=== PATIENT | male | born 1995 | race Caucasian/White ===

== ENCOUNTER 2022-07-06 19:08 | Emergency (ER) | payer BC, SELFPAY ==
--- NOTE | ~2022-07-06 | XR_ITS ---
EXAMINATION: XR finger 2nd RT min 2V INDICATION: Right second finger pain TECHNIQUE: Four views of the right second finger are obtained. COMPARISON: None available FINDINGS: No fracture, dislocation, or subluxation. The bones, soft tissues, and joint spaces are nor mal. No productive changes of bony healing are identified. IMPRESSION: 1. No acute osseous abnormality. Reviewed, dictated and finalized at location F. ERING SERVICE TELEPHONE OPERATOR
[2022-07-06 19:10] VITALS: BP 125/66; PULSE 76; RESP 16; TEMP 36.8; O2SAT 100
--- NOTE | 2022-07-06 19:19 | ED.UPPEXIN ---
HPI - Extremity Injury (Upper) General Chief Complaint: Extremity Injury, Upper Stated Complaint: Pointer Finger Rt Hand Injury Time Seen by Provider: 07/06/22 19:32 Source: patient Mode of arrival: ambulatory Limitations: no limitations History of Present Illness HPI narrative: 26-year-old male presents for complaint of injury to right index finger sustained 2 weeks ago. Injury occurred by smashing finger between two pieces of metal. Endorses the nail has been bruised and oozing blood since. Pain is 4/10, described as throbbing. States pain is improving since onset. He endorses swelling to the tip of finger, it feels numb at times. Endorses full ROM to the finger. Related Data Home Medications Medication Instructions Recorded Confirmed No Home Medications 07/06/22 07/06/22 Allergies Allergy/AdvReac Type Severity Reaction Status Date / Time No Known Allergies Allergy Verified 07/06/22 19:13 Review of Systems Review of Systems: CONSTITUTIONAL: Denies body aches, fever, chills CARDIOVASCULAR: Denies chest pain, palpitations, or edema. RESPIRATORY: Denies cough or dyspnea. GASTROINTESTINAL: Denies abdominal pain, nausea, vomiting, or diarrhea. SKIN: Denies rash, itching, or wounds. MUSCULOSKELETAL: per HPI NEUROLOGIC: Denies headache, weakness. All systems reviewed & are unremarkable except as noted in HPI and below PMFSH Comments At time of signature, I have reviewed and agree with nursing past medical, surgical, social and family history unless otherwise noted. Please see nursing chart for further information. There is no relevant family history pertinent to the presenting complaint Exam Narrative: GENERAL: Well-appearing CHEST: Speaks in full sentences. No respiratory distress. HEART: Regular rate and rhythm. Normal and equal peripheral pulses. EXTREMITIES: Right hand 2nd digit with subungual hematoma and mild swelling to distal phalanx, no active drainage; Finger has normal strength; slightly decreased sensation to distal aspect of finger with 2 point discrimination, normal range of motion to finger. No point tenderness. No open wounds or obvious deformity; pulse palpable and equal bilaterally, skin warm, dry, pink. Capillary refill less than 3 seconds. SKIN: Warm, dry, no rash. NEURO: Alert and oriented x3. PSYCH: Normal mood and affect Course Course Emergency Course: Patient is aware of diagnosis, understands and agrees to treatment plan. Anticipatory guidance given. Patient agrees to follow-up as directed and is aware of reasons to seek care at the emergency department. Portions of this record may have been created with voice recognition software Level of Care: Express Care Visit Vital Signs Vital signs: Vital Signs Temperature 98.3 F 07/06/22 19:10 Pulse Rate 76 07/06/22 19:10 Respiratory Rate 16 07/06/22 19:10 Blood Pressure 125/66 07/06/22 19:10 Pulse Oximetry 100 07/06/22 19:10 Oxygen Delivery Room Air 07/06/22 19:10 Temperature 98.3 F 07/06/22 19:10 Pulse Rate 76 07/06/22 19:10 Respiratory Rate 16 07/06/22 19:10 Blood Pressure 125/66 07/06/22 19:10 Pulse Oximetry 100 07/06/22 19:10 Oxygen Delivery Room Air 07/06/22 19:10 Reviewed MDM - Extremity Injury (Upper) MDM Narrative Medical decision making narrative: results of x-ray reviewed with patient. subungual hematoma present for 2 weeks. Patient does not report severe pain. Advised follow-up with PCP/ hand specialist if needed. Advised supportive measures and signs/symptoms to go to the ER. Pt is appropriate for outpt treatment and f/u. Differential Diagnosis Differential diagnosis: Likely dislocation of finger and other (finger fracture, subungual hematoma) Imaging Data Radiologist's impression: Patient: Brina Vann : 1995 MR#: [id number] Age/Sex: 26 / M Acct:[id number] Loc: [facility]? ? ADM Date: 07/06/22Attending Dr: Ordering Physician: Montse Patricia
== END 2022-07-06 19:52 | disposition home or self-care (01) ==
PROVIDERS: Emergency Provider Nurse Practitioner Family
DX: S60.021A Contusion of right index finger without damage to nail, initial encounter (principal); W23.0XXA Caught, crushed, jammed, or pinched between moving objects, initial encounter
CPT/HCPCS: 73140; 99213; G0463

== ENCOUNTER 2022-07-19 13:02 | Emergency (ER) | payer BC, SELFPAY ==
[2022-07-19 13:21] VITALS: BP 130/63; PULSE 81; RESP 18; TEMP 36.9; O2SAT 98
--- NOTE | 2022-07-19 13:52 | ED.URI ---
HPI - URI/Sore Throat General Chief Complaint: Upper Respiratory Infection Stated Complaint: Cough,Headache,Sore Throat Time Seen by Provider: 07/19/22 13:41 Source: patient Mode of arrival: ambulatory Limitations: no limitations History of Present Illness HPI Narrative: Patient presents today complaining of a 3 day history of cough and sore throat. Cough is productive in the mornings, but lessened throughout the day. Denies fever shortness of breath. He currently rates his sore throat 02/25 has been taking NyQuil, [place] without much relief. Reports girlfriend was sick with a, head cold last week. Related Data Allergies Allergy/AdvReac Type Severity Reaction Status Date / Time No Known Allergies Allergy Verified 07/19/22 13:50 Review of Systems Review of Systems: CONSTITUTIONAL: Denies body aches, fever, chills, or sweats. EYES: Denies visual changes, redness, or discharge. ENT: Denies rhinorrhea, congestion, or otalgia.+ Sore throat CARDIOVASCULAR: Denies chest pain, palpitations, or edema. RESPIRATORY: Denies dyspnea.+ cough GASTROINTESTINAL: Denies abdominal pain, nausea, vomiting, or diarrhea. GENITOURINARY: Denies dysuria or hematuria. SKIN: Denies rash, itching, or wounds. MUSCULOSKELETAL: Denies back pain, joint pain, or myalgia. NEUROLOGIC: Denies headache, numbness, tingling, or weakness. PSYCH: Denies depression or anxiety. PMFSH Comments At time of signature, I have reviewed and agree with nursing past medical, surgical, social and family history unless otherwise noted. Please see nursing chart for further information. There is no relevant family history pertinent to the presenting complaint Exam Narrative: GENERAL: Well-appearing, well-nourished, and in no acute distress. HEAD: Normocephalic, atraumatic. EYES: EOMI. No redness or drainage. Conjunctivae normal. ENT: Mucous membranes pink and moist. Nares clear. No rhinorrhea. TMs normal bilaterally. Throat mildly erythematous without edema or exudate. Uvula midline. NECK: Normal AROM. Supple. No lymphadenopathy. CHEST: No respiratory distress. Clear to auscultation. HEART: Regular rate and rhythm. No murmur appreciated. Normal peripheral pulses. EXTREMITIES: Normal range of motion. No edema. SKIN: Warm, dry, no rash. Capillary refill normal. Normal skin turgor. NEURO: No focal deficits. Alert and oriented x3. Gait steady. PSYCH: Normal affect. No signs of depression or anxiety. Course Course Level of Care: [facility] Visit Vital Signs Vital signs: Vital Signs Temperature 98.5 F 07/19/22 13:21 Pulse Rate 81 07/19/22 13:21 Respiratory Rate 18 07/19/22 13:21 Blood Pressure 130/63 07/19/22 13:21 Pulse Oximetry 98 07/19/22 13:21 Oxygen Delivery Room Air 07/19/22 13:21 Temperature 98.5 F 07/19/22 13:21 Pulse Rate 81 07/19/22 13:21 Respiratory Rate 18 07/19/22 13:21 Blood Pressure 130/63 07/19/22 13:21 Pulse Oximetry 98 07/19/22 13:21 Oxygen Delivery Room Air 07/19/22 13:21 Reviewed. Pt has been instructed to follow up with his PCP regarding his elevated blood pressure today. MDM - URI/Sore Throat Differential Diagnosis Differential diagnosis: Likely upper respiratory infection, viral infection, bronchitis, pharyngitis and other ( strep throat) Lab Data Attestation: I reviewed the patient's lab results. Labs: Strep Screen Presumptive Negative *(Reference Range: Negative)* Critical Care Time Critical Care Time Critical Care Time: No Discharge Plan Discharge Clinical Impression: Upper respiratory infection Qualifiers: URI type: unspecified URI Qualified Code(s): J06.9 - Acute upper respiratory infection, unspecified Patient Disposition: Home, Self-Care Condition: Stable Instructions: Upper Respiratory Infection (DC) Additional Instructions: Your rapid strep swab was negative today at [facility]
== END 2022-07-19 14:08 | disposition home or self-care (01) ==
PROVIDERS: Emergency Provider Nurse Practitioner
DX: J06.9 Acute upper respiratory infection, unspecified (principal)
CPT/HCPCS: 87081; 87880; 99213; G0463

== ENCOUNTER 2023-01-18 12:00 | Emergency (ER) | payer BC, SELFPAY ==
[2023-01-18 12:11] VITALS: BP 128/64; PULSE 76; RESP 16; TEMP 36.9; O2SAT 99
--- NOTE | 2023-01-18 12:15 | ED.EYEPROB ---
HPI - Eye Problem General Chief complaint: Eye Problems Stated complaint: Lt Eye Irritation Time Seen by Provider: 01/18/23 12:04 Source: patient Mode of arrival: ambulatory Limitations: no limitations History of Present Illness HPI Narrative: Patient is a 27-year-old male who presents with left eye irritation after getting paint dust in eye today. Patient states he went home and flushed eye distal foot neck something was stuck on the upper eyelid. Reports constant burning of eye when open. Denies any vision changes, discharge from eye. Related Data Home Medications Medication Instructions Recorded Confirmed omeprazole 20 mg capsule,delayed 20 mg PO DAILY 01/18/23 01/18/23 release Allergies Allergy/AdvReac Type Severity Reaction Status Date / Time No Known Allergies Allergy Verified 01/18/23 12:09 Review of Systems Review of Systems: All systems reviewed & are unremarkable except as noted in HPI and below Constitutional: Constitutional: Denies body ache(s), Denies fever(s), Denies headache(s), Denies malaise and Denies weakness Eyes: Eyes: Denies blurry vision, Denies eye discharge, Reports irritation, Denies itchy eyes, Denies loss of vision and Reports eye pain (Burning) ENT: Denies otalgia, Denies headache(s), Denies nasal discharge, Denies sinus pain and Denies sore throat Cardiovascular: Cardiovascular: Denies chest pain, Denies irregular heart rhythm and Denies dyspnea Respiratory: Respiratory: Denies dyspnea Gastrointestinal: Gastrointestinal: Denies abdominal pain, Denies diarrhea, Denies nausea and Denies vomiting Musculoskeletal: Musculoskeletal: Denies back pain, Denies myalgias and Denies arthralgias Integumentary/Breasts: Skin/Breast: Denies pruritus and Denies rash Neurologic: Denies headache(s), Denies loss of vision and Denies weakness Psychiatric: Psychiatric: Reports no additional psychiatric complaints Allergic/Immunologic: Allergic/Immunologic: Reports itchy eyes PMFSH Comments At time of signature, agree with nursing past medical, surgical, social and family history. There is no relevant family history pertinent to the presenting complaint. Exam Const: General: cooperative, healthy appearing, comfortable, no acute distress and well nourished Nutritional Appearance: well nourished Orientation/consciousness: patient oriented x3 Limitations: no limitations HENMT: Head: normal to inspection, normocephalic and atraumatic Ears: external ears normal Face/Nose/Sinus: Normal external nose present, normal facial exam and face symmetric Face and sinus: normal facial exam and face symmetric Mouth: Yes lip normal Eyes: General: appearance normal, both eyes and all related structures Visual Chavira: normal visual chavira by confrontation Alignment and Position: alignment normal and position normal Periorbital: periorbital findings normal Eyelids: eyelid abnormality left upper eyelid foreign body Conjunctivae: conjunctivae normal Sclera: scleral abnormality left scleral injection diffuse Pupils: Equal, round and reactive pupils present EOM: EOMs intact bilaterally Direct Ophthalmoscopy: no photophobia Other: No hyphema, no foreign body under the lids. Neck: Neck: normal visual inspection, full ROM, no lymphadenopathy and no meningeal signs Chest: Chest palpation & inspection: normal inspection of the chest Resp: Effort & Inspection: normal respiratory effort and able to speak in complete sentences Auscultation: clear to auscultation bilaterally Cardio: Rate: regular rate Rhythm: regular rhythm Heart sounds: S1 normal heart sound present and S2 normal heart sound present GI: Inspection: normal to inspection Skin: General skin exam: normal color and no rashes or lesions noted Neuro: General: patient oriented x3, moves all extremities and no meningeal signs Cranial nerves: Yes Equal, round and reactive pupils present Speech: normal speech Gait exam (Neuro): Normal gait
== END 2023-01-18 12:35 | disposition home or self-care (01) ==
PROVIDERS: Emergency Provider Nurse Practitioner Family
DX: T15.12XA Foreign body in conjunctival sac, left eye, initial encounter (principal); X58.XXXA Exposure to other specified factors, initial encounter; K21.9 Gastro-esophageal reflux disease without esophagitis
CPT/HCPCS: 99213; A9270; G0463

== ENCOUNTER 2025-03-14 11:01 | Emergency (ER) | payer BC, SELFPAY ==
--- OUTSIDE RECORDS SUMMARY | 2025-03-14 11:03 | XMS_ITS | Clinical Summary ---
Author Organization [facility] Address [address] [place] [address] Care Team Providers Care Nurse Extern Name Role Phone Unavailable Primary Care Provider Unavailabl e Source Comments [facility] [employer],non-owned Affiliates and Associated Physician Practices is amultiple site organization consisting of ambulatory clinics and hospital sitesin [place], [place], [place] and [place]. This disclosure is being madepursuant to the Care Everywhere program and may not contain all information available regarding this patient. Last updated 18.[facility] [employer] Allergies No known active allergies Medications * Be aware that medications may not be up to date on this document. Alwaysverify current medications with the patient. montelukast (SINGULAIR) 10 MG tablet Take 1 Tab by mouth every evening. 30 Tab 5 3 Active albuterol HFA (PROVENTIL;VENT BRITTNY;PROAIR) 108 (90 BASE) MCG/ACT inhaler Inhale 2 Puffs by mouth every 4 hours as needed for Wheezing or Cough. OK TO SUBSTITUTE ANY BRAND. 2 Inhaler 0 4 Active AEROCHAMBER PLUS (AEROCHAMBER) Use as directed. 1 each 3 4 Active budesonide-form oterol (SYMBICORT) 160-4.5 MCG/ACT inhaler Inhale 2 Puffs by mouth 2 times daily. 1 Inhaler 4 4 Active amoxicillin-cla vulanate (AUGMENTIN) 875-125 MG tablet Take 1 Tab by mouth 2 times daily with morning and evening meal. 20 Tab 0 4 Active Active Problems Problem Noted Date Diagnosed Date Asthma 07/08/2009 ADHD (attention deficit hyperactivity disorder) 07/08/2009 Immunizations Immunization Administration Dates Next Due INFLUENZA VACCINE, TRIV. (AF LURIA, FLUZONE TRIVALENT; 6MO+) (IIV3) 06/03/2012 DPT 04/09/2002, 7,03/18/1997,1996,1996 HEP A PEDS 2 DOSE 07/13/2008,05/02/2007 HEP B VACCINE, PED/ADOL 03/18/1997,1996, HIB BOOSTER 07/28/1997, 7,02/02/1997,1996 Human Papilloma Virus Nino valent Vaccine 06/03/2012 INFLUENZA A [id number] VACCINE 07/07/2009 INFLUENZA VACCINE 07/13/2008, 5,2003,2000 MENINGOCOCAL MENINGITIS 07/13/2008 MMR 05/25/2002,07/28/1997 POLIO OPV 04/09/2002, 7,02/02/1997,1996 PPD 04/09/2002,09/02/2001 TDAP (7yrs+) 05/02/2007 VARICELLA 05/02/2007,04/09/2002 Family History Medical History Relation Name Comments CAD (Coronary Artery Disease) Maternal Grandmother Relation Name Status Comments Maternal Grandmother Social History Tobacco Use Types Packs/Day Years Used Date Smoking Tobacco: Never Assessed Sex and Gender Information Value Date Recorded Sex Assigned at Not on file Legal Sex Male 5:41 AM [employer] Gender Identity Not on file Sexual Orientation Not on file Last Filed Vital Signs Vital Sign Reading Time Taken Comments Blood Pressure 116/70 10/09/2013 9:28 AM [employer] Pulse 64 10/09/2013 9:28 AM [employer] Temperature 36.6 C (97.9 F) 09/08/2014 10:39 AM [employer] Respiratory Rate 20 07/08/2009 3:28 PM [employer] Oxygen Saturation 98% 10/04/2011 1:41 PM [employer] Inhaled Oxygen Concentration - - Weight 61.9 kg (136 lb 6.4 oz) 09/08/2014 10:39 AM [employer] Height 177.8 cm (5' 10) 09/08/2014 10:39 AM [employer] Body Mass Index 19.57 09/08/2014 10:39 AM [employer] Plan of Treatment Health Maintenance Due Date Last Done Comments HIV SCREENING 2011 HPV VACCINE (2 - Male 3-dose series) 07/01/2012 06/03/2012 HEPATITIS C SCREENING 07/23/2014 DTAP/TDAP/TD VACCINES (7 - Td or Tdap) 05/02/2017 05/02/2007, 04/09/2002, 07/28/1997, Additional history exists COVID-19 VACCINE ( season) 2024 DEPRESSION SCREENING 08/19/2024 INFLUENZA VACCINE (#1) 2025 2, 07/07/2009, 07/13/2008, Additional history exists ZOSTER VACCINE (1 of 2) 2046 HEPATITIS B VACCINE Completed 03/18/1997, 1996, 1996 HIB VACCINE Completed 07/28/1997, 02/18, 02/02/1997, Additional history exists MENINGOCOCCAL GROUPS A/C/Y/W VACCINE Aged Out 07/13/2008 No longer eligible based on patient's age to complete this topic MENINGOCOCCAL (Group B) VACCINE SHARED DECISION-MAKING Aged Out No longer eligible based on patient's age to complete this topic PNEUMOCOCCAL VACCINE Aged Out No long er eligible based on patient's age to complete this topic Insurance HEALTH PLAN
--- OUTSIDE RECORDS SUMMARY | 2025-03-14 11:03 | XMS_ITS | Encounter Summary ---
Author Organization [facility] Address [facility] [place] [address] Care Team Providers Care Apartment Maintenance Supervisor Name Role Phone Melissa Velasco APRN Primary Care Provider [phone] Encounter Details Date Type Department Care Team (Late st Contact Info) Description 12/19/2022 Slyce Message Enc [facility] Medical Group Family & Internal Medicine [facility] [address] [place] [address] Oni, [facility] Provider clonazepam Social History Tobacco Use Types Packs/Day Years Used Date Smoking Tobacco: Every Day Cigarettes 1 10 Smokeless Tobacco: Never Comments:vapes daily Alcohol Use Standard Drinks/Week Comments Yes 10 (1 standard drink = 0.6 oz pu re alcohol) socially AUDIT-C Answer Date Recorded Q1: How often do you have a drink containing alc ohol? 2-3 times a week 09/22/2022 Q2: How many drinks containi ng alcohol do you have on a typical day when you are drinking? 5 or 6 09/22/2022 Q3: How often do you have si x or more drinks on one occasion? Monthly 09/22/2022 PHQ-2 Answer Date Recorded Patient Health Questionnaire-2 Score 1 10/18/2022 PRAPARE - Transportation Answer Date Re corded In the past 12 months, has l ack of transportation kept you from medical appointments or from getting medications? No 11/2022 In the past 12 months, has l ack of transportation kept you from meetings, work, or from getting things needed for daily living? No 09/22/2022 Sex and Gender Information Value Date Recorded Sex Assigned at Male 09/02/2024 5:11 PM HISTOLOGY TECHNOLOGIST Legal Sex Male 8:00 PM CDT Gender Identity Not on file Sexual Orientation Not on file documented as of this encounter Plan of Treatment Not on file documented as of this encounter Visit Diagnoses Not on filedocumented in this encounter Additional Health Concerns Assessment Noted Time PHQ-9 Depression Total Score: 2 10/19/19 23 2:37 PM HISTOLOGY TECHNOLOGIST documented as of this encounter Care Teams Apartment Maintenance Supervisor Relationship Specialty Start Date End Date Melissa Velasco APRN [id number] [place] [address] PCP - General NURSE PRACTITIONER 09/14/22 documented as of this encounter
--- OUTSIDE RECORDS SUMMARY | 2025-03-14 11:03 | XMS_ITS | Encounter Summary ---
Author Organization [facility] Address [facility] [place] [address] Care Team Providers Care Advertising Assistant Name Role Phone Melissa Velasco APRN Primary Care Provider [phone]- [phone] Encounter Details Date Type Department Care Team (Late st Contact Info) Description 02/04/2024 Jampp Message [facility] Family [facility] Internal Medicine [facility] [address] [place] [address] Oni, [facility] Provider Shonda [facility] peggy Social History Tobacco Use Types Packs/Day Years Used Date Smoking Tobacco: Every Day Cigarettes 1 10 Smokeless Tobacco: Never Comments:vapes daily Alcohol Use Standard Drinks/Week Comments Not Currently 10 (1 standard drink = 0.6 oz pu re alcohol) AUDIT-C Answer Date Recorded Q1: How often [...] Date Recorded Patient Health Questionnaire-2 Score 1 02/04/2024 PRAPARE - Transportation Answer Date Re corded [...] Sex Assigned at Male 09/02/2024 5:11 PM DIRECTOR OF SUSTAINABILITY Legal Sex Male 8:00 PM CDT Gender Identity Not on file Sexual Orientation Not on file documented as of this encounter Functional Status * Over the past 2 weeks, how often have you been bothered by any of the following problems? Question Answer Date of Assessment Author Status Little interest or pleasure in doing things Several days 02/04/2024 9:17 AM XAVIERT Valentin Rahman MA Activ e Feeling down, depressed, or hopeless Not at all 02/04/2024 9:17 AM XAVIERT Valentin Rahman M A Active Patient Health Questionnaire-2 Score 1 02/04/2024 9:17 AM Valentin Aldrich MA Active * Question Answer Date of Assessment Author Status Trouble falling or staying asleep, or sleeping too much Not at all 02/04/2024 9:17 AM Valentin Aldrich MA Active Feeling tired or having little energy Several days 02/04/2024 9:17 AM Valentin Aldrich MA Active Poor appetite or overeating More than half the days 02/04/2024 9:17 AM Valentin Aldrich MA Active Feeling bad about yourself - or that you are a failure or have let yourself or your family down Not at all 02/04/2024 9:17 AM Valentin Aldrich MA Active Trouble concentrating on things, such as reading the newspaper or watching television Not at all 02/04/2024 9:17 AM Valentin Aldrich MA Active Moving or speaking so slowly that other people could have noticed? Or the opposite - being so fidgety or restless that you have been moving around a lot more than usual. Not at all 02/04/2024 9:17 AM Valentin Aldrich MA Active Thoughts that you would be better off or hurting yourself in some way Not at all 02/04/2024 9:17 AM Valentin Aldrich MA Active Patient Health Questionnaire-9 Score 4 02/04/2024 9:17 AM Valentin Aldrich MA Active * Over the last 2 weeks, how often have you been bothered by any of the following problems? Question Answer Date of Assessment Author Status Feeling nervous, anxious, or on edge 1 02/04/2024 9:18 AM CDT Valentin Rahman MA Activ e Not being able to stop or control worrying 0 02/04/2024 9:18 AM CDT Valentin Rahman MA Acti ve Worrying too much about different things 1 02/04/2024 9:18 AM CDT Valentin Rahman MA Acti ve Trouble relaxing 1 02/04/2024 9:18 AM CDT Valentin Rahman MA Active Being so restless that it is hard to sit still 1 02/04/2024 9:18 AM CDT Valentin Rahman MA Act erika Becoming easily annoyed or irritable 1 02/04/2024 9:18 AM CDT Valentin Rahman MA Activ e Feeling afraid as if something awful might happen 0 02/04/2024 9:18 AM CDT Jaime Rahman MA Active PAUL-7 Total Score 5 02/04/2024 9:18 AM CDT Valentin Rahman MA Active documented as of this encounter Plan of Treatment Not on file documented as of this encounter Visit Diagnoses Not on filedocumented in this encounter Additional Health Concerns Assessment Noted Time PHQ-9 Depression Total Score: 4 02/04/20 24 9:17 AM CDT documented as of this encounter Care Teams Advertising Assistant Relationship Specialty Start Date End Date Melissa Velasco APRN [id number] [facility] [address] [place] [address] PCP - General NURSE PRACTITIONER 09/14/22 documented as of this encounter
--- OUTSIDE RECORDS SUMMARY | 2025-03-14 11:03 | XMS_ITS | Encounter Summary ---
Author Organization [facility] Address [facility] [place] [address] Care Team Providers Care Svp Name Role Phone Melissa Velasco APRN Primary Care Provider [phone]- [phone] Encounter Details Date Type Department Care Team (Late st Contact Info) Description 04/30/2023 Musicnotes Message [facility] Family & Internal Medicine [facility] [id number] [place] [address] Oni, [facility] Provider pain Social History Tobacco Use Types Packs/Day Years Used Date Smoking Tobacco: Former Cigarettes 1 10 Smokeless Tobacco: Never Comments:vapes daily Alcohol Use Standard Drinks/Week Comments Yes 10 (1 standard drink = 0.6 oz pu re alcohol) 6-10 drinks over the weekend AUDIT-C Answer Date Recorded Q1: How often [...] Answer Date Recorded Patient Health Questionnaire-2 Score 0 03/14/2023 PRAPARE - Transportation Answer Date Re corded [...] Sex Assigned at Male 09/02/2024 5:11 PM MALE MODEL Legal Sex Male 8:00 PM CDT Gender Identity Not on file Sexual Orientation Not on file documented as of this encounter Plan of Treatment Not on file documented as of this encounter Visit Diagnoses Not on filedocumented in this encounter Additional Health Concerns Assessment Noted Time PHQ-9 Depression Total Score: 2 10/19/19 2:37 PM MALE MODEL documented as of this encounter Care Teams Svp Relationship Specialty Start Date End Date Melissa Velasco APRN [address] [place] [address] PCP - General NURSE PRACTITIONER 09/14/22 documented as of this encounter
--- OUTSIDE RECORDS SUMMARY | 2025-03-14 11:03 | XMS_ITS | Continuity of Care Document ---
Author Organization [facility] Address [address] [place] [address] Phone Care Team Providers Care Solar Project Manager Name Role Phone [facility] Unavailable Unavail able Susan Arango Unavailable Unavailable Procedures Procedure Date Vision Svcs Frames Purchases SV Poly Carb Sph [place] To +/- 4 008 Tax - Medical Eye Exam & Treatment Advance Directives Directive Yes / No Effective Date File Name No Information Encounters Encounter Description Practice Location Reason(s) For Visit Diagnoses Date Provider Providers Copied on Encounter [facility], [address] [place] [address] [facility] [place], [place], [id number], tel:[phone] [facility] No Information 8 [facility] . [address] [facility], [facility] [address], [place], [id number], [place]. tel:[phone] Referring Provider: Radha Bradley, [address] [facility] [address], [place], [address]. tel:[phone] g Provider: Susan Arango, [address] [facility], [place], [address]. tel:[phone] [facility], [address], [place], [place], [id number], [place] tel:[phone] [facility] No Information Dave Garcia. [address] [facility] , [address], [place], [address], [place]. tel:[phone] Family History Family Member Type Diagnosis Age At Onset No Information Payers Payer name Insurance type Covered green party ID Authoriza tion(s) No Information Social [...]
--- OUTSIDE RECORDS SUMMARY | 2025-03-14 11:03 | XMS_ITS | Clinical Summary ---
Author Organization [facility] Address [facility] [place] [address] Care Team Providers Care Catch Basin Cleaner Name Role Phone Melissa Velasco APRN Primary Care Provider [phone]- [phone] Allergies No known active allergies Medications levalbuterol (XOPENEX HFA) 45 MCG/ACT inhalerIndicatio ns:Symptom of wheezing Inhale 2 puffs into the lungs 3 (three) times daily as needed for Wheezing. 45 g 1 4 Active omeprazole (PRILOSEC) 40 MG capsuleIndicatio ns:Gastroesophag eal reflux disease, unspecified whether esophagitis present Take 1 capsule (40 mg total) by mouth daily. 90 capsule 4 Active escitalopram (LEXAPRO) 5 MG tabletIndication s:Anxiety Take 1 tablet (5 mg total) by mouth daily. 90 tablet 1 5 Active ALPRAZolam (XANAX) 1 MG tabletIndication s:Anxiety Take 1 tablet (1 mg total) by mouth daily as needed for Anxiety. 30 tablet 5 Active ALPRAZolam (XANAX) 1 MG tabletIndication s:Anxiety Take 1 tablet (1 mg total) by mouth daily as needed for Anxiety. 30 tablet 5 02/23/20 25 Discontinu ed(Reorder ) Active Problems Problem Noted Date Diagnosed Date Gastroesophageal reflux dise ase, unspecified whether esophagitis present 05/15/2023 Anxiety 03/14/2023 Attention deficit hyperactivity disorder (ADHD) 07/08/2009 Asthma ([facility]) 09/16/1998 Immunizations Immunization Administration Dates Next Due Dtap 04/09/2002, 7,03/18/1997,02/02/1997, Dtp/Hib (Tetramune) 07/28/1997,03/18/1997,1996,1996 H1N1 2009 Influenza Vaccine 07/07/2009 HPV4 (Gardasil) 06/03/2012 Hepatitis A (Havrix [address]) 07/13/2008, 007 Hepatitis B Pediatric 03/18/1997,1996,08/20 Hib (Prohibit) 07/28/1997,03/18/1997,02/02/1997 ,1996 Influenza (Generic) 06/03/2012, 8,07/31/2005,2003, MMR (MMRII) 05/25/2002,07/28/1997 Meningococcal (Menomune) 07/13/2008 Polio Opv (Generic) 04/09/2002,03/18/1997,1996,1996 Tdap (Boostrix) 05/03/2024 Tdap (Generic) 05/02/2007 Varicella (Varivax) 05/02/2007,04/09/2002 Family History Medical History Relation Comments Drug Abuse Father Hypertension Father Mental Health Father Heart Disease Maternal Grandmother Alcohol Abuse Mother Asthma Mother Cancer Paternal Aunt Cancer Paternal Grandfather Cancer Paternal Uncle Relation Status Comments Father Maternal Grandmother Mother Paternal Aunt Paternal Grandfather Paternal Uncle Social History Tobacco Use Types Packs/Day Years Used Date Smoking Tobacco: Every Day Cigarettes 1 10 Smokeless Tobacco: Never Tobacco Cessation:Ready to Q uit: No; Counseling Given: Yes Comments:vapes daily Alcohol Use Standard Drinks/Week Comments [...] Date Recorded Patient Health Questionnaire-2 Score 1 09/04/2024 PRAPARE - Transportation Answer Date Re corded [...] Sex Assigned at Male 09/02/2024 5:11 PM MORTGAGE ANALYST Legal Sex Male 8:00 PM CDT Gender Identity Not on file Sexual Orientation Not on file Last Filed Vital Signs Vital Sign Reading Time Taken Comments Blood Pressure 129/71 12/03/2024 3:23 PM CDT Pulse 73 12/03/2024 3:23 PM CDT Temperature 36.9 C (98.5 F) 12/03/2024 3:23 PM CDT Respiratory Rate 20 12/03/2024 3:23 PM CDT Oxygen Saturation 99% 12/03/2024 3:23 PM CDT Inhaled Oxygen Concentration - - Weight 71.2 kg (157 lb) 12/03/2024 3:23 PM CDT Height 182.9 cm (6') 12/03/2024 3:23 PM CDT Body Mass Index 21.29 12/03/2024 3:23 PM CDT Plan of Treatment Health Maintenance Due Date Last Done Comments Annual Physical 1999 HPV Vaccines (2 - Male 3-dose series) 07/01/2012 06/03/2012 Hepatitis C 03/17/2025 Postponed from 2014 (Patient Refused) COVID-19 Vaccine ( - season) 2025 Postponed from 04/19/2024 (Patient Refused) Pneumococcal Vaccine: Pediatrics (0 to 5 Years) and At-Risk Patients (6 to 49 Years) (1 of 2 - PCV) 09/17/2025 Postponed from 2015 (Patient will follow up with PCP) DTaP, Tdap and Td Vaccines (5 - Td or Tdap) 05/03/2034 05/03/2024, 05/02/2007, 04/09/2002, Additional history exists Hepatitis B Vaccines Completed 03/18/1997, 1996, 1996 Meningococcal Vaccine Aged Out 07/13/2008 No luca marisol eligible based on patient's age to complete this topic PHQ-2 (Physician Mead) Completed 09/04/2024 Meningococcal B Vaccine Aged Out No l onger eligible based on patient's age to complete this topic RSV Immunizations Under 20 Months Aged Out No longer eligible based on patient's age to complete this topic Insurance [employer] Care Teams Catch Basin Cleaner Relationship Specialty Start Date End Date Melissa Velasco APRN [address] [facility] [address] [place] [address] PCP - General NURSE PRACTITIONER 09/14/22
--- OUTSIDE RECORDS SUMMARY | 2025-03-14 11:03 | XMS_ITS | Encounter Summary ---
Author Organization [facility] Address [facility] [place] [address] Care Team Providers Care Inventory Control Specialist Name Role Phone Melissa Velasco APRN Primary Care Provider [phone]- [phone] Encounter Details Date Type Department Care Team (Late st Contact Info) Description 12/06/2023 Zoosk Message [facility] Family & Internal Medicine [facility] [address] [place] [address] Oni, [facility] Provider Need follow up appt Social History Tobacco Use Types Packs/Day Years [...] Sex Assigned at Male 09/02/2024 5:11 PM VP SECURITIES Legal Sex Male 8:00 PM CDT Gender Identity Not on file Sexual Orientation Not on file documented as of this encounter Plan of Treatment Not on file documented as of this encounter Visit Diagnoses Not on filedocumented in this encounter Additional Health Concerns Assessment Noted Time PHQ-9 Depression Total Score: 2 10/19/19 23 2:37 PM VP SECURITIES documented as of this encounter Care Teams Inventory Control Specialist Relationship Specialty Start Date End Date Melissa Velasco APRN [address] [place] [address] PCP - General NURSE PRACTITIONER 09/14/22 documented as of this encounter
--- OUTSIDE RECORDS SUMMARY | 2025-03-14 11:08 | XMS_ITS | Continuity of Care Document ---
Author Organization [facility] Address [address] [place] [address] Phone Care Team Providers Care Technologist Infectious Disease Name Role Phone [facility] Unavailable Unavail able Susan Arango Unavailable Unavailable Procedures Procedure Date Vision Svcs Frames Purchases SV Poly Carb Sph [place] To +/- 4 008 Tax - Medical Eye Exam & Treatment Advance Directives Directive Yes / No Effective Date File Name No Information Encounters Encounter Description Practice Location Reason(s) For Visit Diagnoses Date Provider Providers Copied on Encounter [facility], [address] [place] [address] [facility], [place], [place], [id number], tel:[phone] [facility] No Information 8 [facility] . [address] [facility], [facility] [address], [place], [id number], [place]. tel:[phone] Referring Provider: Radha Bradley, [address] [facility] [address], [place], [address]. tel:[phone] g Provider: Susan Arango, [address] [facility], [place], [address]. tel:[phone] [facility], [address], [place], [place], [id number], [place] tel:[phone] [facility] No Information Dave Garcia. [address] [facility] , [address], [place], [address], [place]. tel:[phone] Family History Family Member Type Diagnosis Age At Onset No Information Payers Payer name Insurance type Covered alliance party ID Authoriza tion(s) No Information Social [...]
[2025-03-14 11:13] VITALS: BP 117/59; PULSE 66; RESP 18; TEMP 36.7; O2SAT 100
--- NOTE | 2025-03-14 11:18 | ED_ITS ---
HPI - Skin/Abscess/Foreign Bdy General Chief complaint: Skin/Abscess/Foreign Body Stated complaint: infection Time Seen by Provider: 03/14/25 11:05 Source: patient Mode of arrival: ambulatory Limitations: no limitations History of Present Illness HPI narrative: Patient is a 29-year-old male who presents with redness surrounding when he thought was an insect bite for over week. Patient states it is becoming more red slightly warm to touch and intermittently draining fluid. Denies any fever, chills, nausea, vomiting, diarrhea. Related Data Home Medications ?Medication ?Instructions ?Recorded ?Confirmed ?Last Taken ?Type omeprazole 20 mg capsule,delayed 20 mg PO DAILY 01/18/23 03/14/25 Unknown History release alprazolam 1 mg tablet mg 03/14/25 Unknown History escitalopram oxalate 5 mg tablet mg 03/14/25 Unknown History Allergies Allergy/AdvReac Type Severity Reaction Status Date / Time No Known Allergies Allergy Verified 03/14/25 11:12 Review of Systems 2 Review of Systems: All systems reviewed & are unremarkable except as noted in HPI and below Constitutional: Constitutional: Denies body ache(s), Denies chills, Denies fatigue, Denies fever(s), Denies headache(s), Denies malaise and Denies weakness Eyes: Eyes: Denies blurry vision, Denies irritation and Denies loss of vision ENT: Denies otalgia, Denies headache(s), Denies nasal discharge, Denies sinus pain and Denies sore throat Cardiovascular: Cardiovascular: Denies chest pain, Denies irregular heart rhythm and Denies dyspnea Respiratory: Respiratory: Denies dyspnea Gastrointestinal: Gastrointestinal: Denies abdominal pain, Denies melena, Denies hematochezia, Denies diarrhea, Denies nausea and Denies vomiting Musculoskeletal: Musculoskeletal: Denies back pain, Denies myalgias and Denies arthralgias Integumentary/Breasts: Skin/Breast: Denies pruritus, Reports erythema, Denies rash, Reports skin swelling and Reports wounds Neurologic: Denies headache(s), Denies loss of vision and Denies weakness Psychiatric: Psychiatric: Reports no additional psychiatric complaints Endocrine: Endocrine: Denies fatigue PMFSH Comments At time of signature, agree with nursing past medical, surgical, social and family history. There is no relevant family history pertinent to the presenting complaint. Exam 2 Const: General: cooperative, healthy appearing, comfortable, no acute distress and well nourished Nutritional Appearance: well nourished O rientation/consciousness: patient oriented x3 Limitations: no limitations HENMT: Head: normal to inspection, normocephalic and atraumatic Ears: h earing grossly normal bilaterally and external ears normal Face/Nose/Sinus: N ormal external nose present, normal facial exam and face symmetric Face and sinus: normal facial exam and face symmetric Mouth: Yes lip normal Eyes: General: appearance normal, both eyes and all related structures A lignment and Position: alignment normal and position normal Periorbital: p eriorbital findings normal Eyelids: eyelids normal Pupils: Equal, round and reactive pupils present EOM: EOMs intact bilaterally Neck: Neck: normal visual inspection, full ROM and supple Chest: Chest palpation & inspection: normal inspection of the chest Resp: Effort & Inspection: normal respiratory effort and able to speak in complete sentences Auscultation: clear to auscultation bilaterally Cardio: Rate: regular rate Rhythm: regular rhythm Heart sounds: S1 normal heart sound present and S2 normal heart sound present GI: Inspection: normal to inspection Skin: General skin exam: normal color and no rashes or lesions noted Full body images: 1. 1cm area of erythema with warmth and tenderness on palpation. Slight serous drainage Neuro: General: patient oriented x3 and moves all extremities Cranial nerves: Yes Equal, round and reactive pupils present Speech: normal speech Gait exam (Neuro): Normal gait present Extrem: General: normal to inspection, full ROM and no edema Psych: Appearance: grossly normal and well kempt Mental Status: mental status grossly normal Speech and movement: Normal speech and movement present Affect: normal affect Attitude: cooperative Thought process: Normal thought process present Course Course Emergency Course: Patient is aware of diagnosis, understands and agrees to treatment plan. Anticipatory guidance given. Patient agrees to follow-up as directed and is aware of reasons to seek care at the emergency department. Portions of this record may have been created with voice recognition software Level of Care: Express Care Visit Vital Signs Vital signs: Vital Signs Temperature 36.7 C 03/14/25 11:13 Pulse Rate 66 03/14/25 11:13 Respiratory Rate 18 03/14/25 11:13 Blood Pressure 117/59 L 03/14/25 11:13 Pulse Oximetry 100 03/14/25 11:13 Oxygen Delivery Room Air 03/14/25 11:13 Temperature 36.7 C 03/14/25 11:13 Pulse Rate 66 03/14/25 11:13 Respiratory Rate 18 03/14/25 11:13 Blood Pressure 117/59 L 03/14/25 11:13 Pulse Oximetry 100 03/14/25 11:13 Oxygen Delivery Room Air 03/14/25 11:13 Reviewed MDM - Skin/Abscess/Foreign Bdy MDM Narrative Medical decision making narrative: Findings consistent with cellulitis. Will treat with antibiotics. Educated patient on sun sensitivity risks of doxycycline Pt well hydrated appearing, in no respiratory distress, hemodynamically stable. Recommend supportive care. The patient is stable at time of discharge the clinical impression was discussed and the patient was given the opportunity to ask questions, which were addressed as completely as possible given the information available at present. Anticipatory guidance and return to care precautions were discussed and the importance of primary care follow-up was stressed and encouraged. The patient voiced understanding of the plan, indications to return, and the need for follow-up. Exam findings show no acute concerns or changes Patient is appropriate for outpatient treatment and follow-up. Differential Diagnosis Differential diagnosis: Likely abscess of skin or subcutaneous tissue, allergic reaction to drug, cellulitis, insect bites and contact dermatitis Medical Records Attestation: I reviewed the patient's medical records. Discharge Plan Discharge Clinical Impression: Cellulitis Qualifiers: Site of cellulitis: extremity Site of cellulitis of extremity: lower extremity Laterality: right Qualified Code(s): L03.115 - Cellulitis of right lower limb Patient Disposition: Home Condition: Stable Instructions: Cellulitis (ED) Additional Instructions: You have been prescribed Doxycycline today.It may make your skin more sensitive to sunlight than normal. Make sure you wear sunscreen at all times when outside while on the medication. Please follow up with your Primary Care Doctor within 48-72 hours - call for an appointment. Rest and elevate affected area; apply moist heat 3-4 times daily for 10-15 minutes. Clean with soap and water only; Avoid using alcohol and peroxide. Elevate the affected area if possible Please take Antibiotics as directed. For pain, you may take: Tylenol 650-1000mg by mouth every 4-6 hours. Do not exceed 4000mg in 24 hours. Advil (Ibuprofen) 600 mg by mouth every 6 hours. Do not exceed 2400mg in 24 hours. 8 AM: Tylenol 11 AM: Ibuprofen 2 PM: Tylenol 5 PM: Ibuprofen 8 PM: Tylenol 11 PM: Ibuprofen 2 AM: Tylenol 5 AM: Ibuprofen If you experience any worsening redness, swelling, streaking (red lines), fever or chills please go to the ER Patient Language: Danish Prescriptions: New doxycycline monohydrate 100 mg tablet 100 mg PO BID 7 Days Qty: 14 0RF mupirocin 2 % ointment 1 applic topical BID Qty: 15 0RF No Action alprazolam 1 mg tablet escitalopram oxalate 5 mg tablet omeprazole 20 mg capsule,delayed release(DR/EC) 20 mg PO DAILY Follow-up/Referrals: Obi Rae MD [Physician] - 3 Days Time of Disposition: 11:42
== END 2025-03-14 11:43 | disposition home or self-care (01) ==
PROVIDERS: Emergency Provider Nurse Practitioner Family
DX: L03.115 Cellulitis of right lower limb (principal); K21.9 Gastro-esophageal reflux disease without esophagitis; F41.9 Anxiety disorder, unspecified; F32.A Depression, unspecified; Z85.47 Personal history of malignant neoplasm of testis
CPT/HCPCS: 99213; G0463

== ENCOUNTER 2025-04-28 08:56 | Emergency (ER) | payer BC, SELFPAY ==
--- OUTSIDE RECORDS SUMMARY | 2007-11-28 09:34 | XMS_ITS | Continuity of Care Document ---
Author Organization [facility] Address [address] [place] [address] Phone Care Team Providers Care Assembler Show Motor Name Role Phone [facility] Unavailable Unavail able Susan Arango Unavailable Unavailable Procedures Procedure Date Vision Svcs Frames Purchases SV Poly Carb Sph Au Train To +/- 4 008 Tax - Medical Eye Exam & Treatment Advance Directives Directive Yes / No Effective Date File Name No Information Encounters Encounter Description Practice Location Reason(s) For Visit Diagnoses Date Provider Providers Copied on Encounter [facility], [address] [place] [address] [facility] [address], [place], [place], [id number], tel:[phone] [facility] No Information 8 [facility] . [address] [facility], [facility] [address], [place], [id number], [place]. tel:[phone] Referring Provider: Radha Bradley, [address], [place], [address]. tel:[phone] g Provider: Susan Arango, [address] [facility], [place], [address]. tel:[phone] [facility], [address], [place], [place], [id number], [place] tel:[phone] [facility] No Information Dave Garcia. [address] , [address], [place], [address], [place]. tel:[phone] Family History Family Member Type Diagnosis Age At Onset No Information Payers Payer name Insurance type Covered republican ID Authoriza tion(s) No Information Social History Type Description Quantity Date Captured Comments Sex Male Smoking Status No Information Chief Complaint And Reason For Visit No Information Reason For Referral Reason For Referral No Information History Of Present Illness Encounter Date Complaint History Of Prese nt Illness No Information Functional Status Date Functional Assessmen t No Information Instructions Date Instruction Additional Infor mation No Information Assessments Type Assessment Date No Information Patient Care Teams Name Effective Dates (start - stop) Status Members No Information
--- OUTSIDE RECORDS SUMMARY | 2007-11-28 09:34 | XMS_ITS | Continuity of Care Document ---
Author Organization [facility] Address [address] [place] [address] Phone Care Team Providers Care Defense Travel Administrator Name Role Phone [facility] Unavailable Unavail able Susan Arango Unavailable Unavailable Procedures Procedure Date Vision Svcs Frames Purchases SV Poly Carb Sph [place] To +/- 4 008 Tax - Medical Eye Exam & Treatment Advance Directives Directive Yes / No Effective Date File Name No Information Encounters Encounter Description Practice Location Reason(s) For Visit Diagnoses Date Provider Providers Copied on Encounter [facility], [address] [place] [address] [facility] [address], [place], [place], [id number], tel:[phone] [facility] No Information 8 [facility] . [address] [facility], [facility] [address], [place], [id number], [place]. tel:[phone] Referring Provider: Radha Bradley, [address] [facility], [place], [address]. tel:[phone] g Provider: Susan Arango, [address] [facility], [place], [address]. tel:[phone] [facility], [address], [place], [place], [id number], [place] tel:[phone] [facility] No Information Dave Garcia. [address] [facility] , [address], [place], [address], [place]. tel:[phone] Family History Family Member Type Diagnosis Age At Onset No Information Payers Payer name Insurance type Covered constitution party ID Authoriza tion(s) No Information Social History [...]
--- NOTE | ~2025-04-28 | XR_ITS ---
X-rays left knee Indication: Pain, twisting injury Comparison: None Technique: 4 views left knee Findings/Impression: 1. No fracture, dislocation, or effusion left knee. Reviewed, dictated and finalized at location R.
--- NOTE | 2025-04-28 09:00 | ED.GENADULT ---
HPI - General Adult General Chief complaint: Extremity Injury, Lower Stated complaint: L knee pain Source: patient Mode of arrival: ambulatory Limitations: no limitations History of Present Illness HPI narrative: Pt is a 29 y/o male presenting with c/o L. knee pain. Pain began this morning after a twisting injury while walking out of his house. He denies falling. He denies striking his head. No paresthesias. 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 NO additional complaints. Related Data Home Medications ?Medication ?Instructions ?Recorded ?Confirmed ?Last Taken ?Type omeprazole 20 mg capsule,delayed 20 mg PO DAILY 01/18/23 04/28/25 Unknown History release alprazolam 1 mg tablet mg 03/14/25 Unknown History escitalopram oxalate 5 mg tablet mg 03/14/25 Unknown History Allergies Allergy/AdvReac Type Severity Reaction Status Date / Time No Known Allergies Allergy Verified 04/28/25 09:06 Review of Systems Review of Systems: CONSTITUTIONAL: Denies body aches, fever, chills, or sweats. EYES: Denies visual changes, redness, or discharge. ENT: Denies rhinorrhea, congestion, sore throat, or otalgia. CARDIOVASCULAR: Denies chest pain, palpitations, or edema. RESPIRATORY: Denies cough or dyspnea. GASTROINTESTINAL: Denies abdominal pain, nausea, vomiting, or diarrhea. GENITOURINARY: Denies dysuria or hematuria. SKIN: Denies rash, itching, or wounds. MUSCULOSKELETAL:Reports L. knee pain Denies back pain NEUROLOGIC: Denies headache, numbness, tingling, or weakness. PSYCH: Denies depression or anxiety. All systems reviewed & are unremarkable except as noted in HPI and below ( HPI) Exam Narrative: GENERAL: Well-appearing, well-nourished, and in no acute distress. HEAD: Normocephalic, atraumatic. EYES: EOMI. No redness or drainage. Conjunctivae normal. NECK: Normal AROM. Supple. CHEST: No respiratory distress. HEART: Regular rate. Normal peripheral pulses. MUSCULOSKELETAL: No bony tenderness. TTP immediately superior to L. patella without erythema, edema, ecchymosis. +pain with all passive ROM. +DNVI to the LLE. SKIN: Warm, dry, no rash. Capillary refill normal. Normal skin turgor. NEURO: No focal deficits. Alert and oriented x3. Gait steady. PSYCH: Normal affect. No signs of depression or anxiety. Course Course Level of Care: Express Care Visit Vital Signs Vital signs: Vital Signs Temperature 97.2 F L 04/28/25 09:19 Pulse Rate 74 04/28/25 09:19 Respiratory Rate 18 04/28/25 09:19 Blood Pressure 141/89 H 04/28/25 09:19 Pulse Oximetry 100 04/28/25 09:19 Oxygen Delivery Room Air 04/28/25 09:19 Temperature 97.2 F L 04/28/25 09:19 Pulse Rate 74 04/28/25 09:19 Respiratory Rate 18 04/28/25 09:19 Blood Pressure 141/89 H 04/28/25 09:19 Pulse Oximetry 100 04/28/25 09:19 Oxygen Delivery Room Air 04/28/25 09:19 Medical Decision Making MDM Narrative Medical decision making narrative: Discussed elevated blood pressure readings with patient and advised daily BP monitoring and f/u with PCP if persisting. Declined jonathan wrap, declined work note Vital Signs Vital Signs: Vital Signs Temperature 97.2 F L 04/28/25 09:19 Pulse Rate 74 04/28/25 09:19 Respiratory Rate 18 04/28/25 09:19 Blood Pressure 141/89 H 04/28/25 09:19 Pulse Oximetry 100 04/28/25 09:19 Oxygen Delivery Room Air 04/28/25 09:19 Temperature 97.2 F L 04/28/25 09:19 Pulse Rate 74 04/28/25 09:19 Respiratory Rate 18 04/28/25 09:19 Blood Pressure 141/89 H 04/28/25 09:19 Pulse Oximetry 100 04/28/25 09:19 Oxygen Delivery Room Air 04/28/25 09:19 Imaging Data Attestation: I personally reviewed and interpreted this imaging study as follows: My impression: NAF Discharge Plan Discharge Clinical Impression: Acute pain of left knee, Elevated blood pressure reading in office without diagnosis of hypertension Patient Disposition: Home Condition: Stable Instructions: P.R.I.C.E. Treatment (ED) Additional Instructions: You can take up to 4000mg of tylenol per day and up to 2400 mg of ibuprofen per day. Go straight to ER should your symptoms become worse or should any new symptoms develop Patient Language: Armenian Prescriptions: No Action alprazolam 1 mg tablet escitalopram oxalate 5 mg tablet omeprazole 20 mg capsule,delayed release(DR/EC) 20 mg PO DAILY Follow-up/Referrals: PHYSICIAN NOT ON STAFF,NONSTAFF [Primary Care Provider] - 04/29/25 Jaime Ontiveros MD [Physician, Orthopedics] - 05/05/25 Time of Disposition: 10:01
[2025-04-28 09:19] VITALS: BP 141/89; PULSE 74; RESP 18; TEMP 36.2; O2SAT 100
--- OUTSIDE RECORDS SUMMARY | 2025-04-28 09:29 | XMS_ITS | Encounter Summary ---
Author Organization [facility] Address [facility] [place] [address] Care Team Providers Care Oil And Gas Principal Name Role Phone Melissa Velasco APRN Primary Care Provider +1- [phone] Encounter Details Date Type Department Care Team (Late st Contact Info) Description 04/30/2023 Fantasy Shopper Message [facility] Family & Internal Medicine [facility] [id number] [place] [address] Oni, [facility] Provider pain Social History Tobacco [...] Sex Assigned at Male 09/02/2024 5:11 PM PUBLIC HEALTH TRAINING ASSISTANT Legal Sex Male 8:00 PM CDT Gender Identity Not on file Sexual Orientation Not on file documented as of this encounter Plan of Treatment Upcoming Encounters Date Type Department Care Team (Late st Contact Info) Description 05/31/2025 1:40 PM CDT Office Visit [facility] Family & Internal Medicine [facility] [address] [place] [address] Melissa Velasco APRN [id number] [address] documented as of this encounter Visit Diagnoses Not on filedocumented in this encounter Additional Health Concerns Assessment Noted Time PHQ-9 Depression Total Score: 2 10/19/19 23 2:37 PM PUBLIC HEALTH TRAINING ASSISTANT documented as of this encounter Care Teams Oil And Gas Principal Relationship Specialty Start Date End Date Melissa Velasco APRN [id number] [address] PCP - General NURSE PRACTITIONER 09/14/22 documented as of this encounter
--- OUTSIDE RECORDS SUMMARY | 2025-04-28 09:29 | XMS_ITS | Encounter Summary ---
Author Organization [facility] Address [facility] [place] [address] Care Team Providers Care Pot Maker Name Role Phone Melissa Velasco APRN Primary Care Provider +1- [phone] Encounter Details Date Type Department Care Team (Late st Contact Info) Description 12/19/2022 UB Access Message Enc [facility] Group Family & Internal Medicine [facility] [address] [place] [address] Oni, [facility] Provider clonazepam Social History Tobacco Use Types [...] Sex Assigned at Male 09/02/2024 5:11 PM STRATEGIC ACCOUNTS MANAGER Legal Sex Male 8:00 PM CDT Gender Identity Not on file Sexual Orientation Not on file documented as of this encounter Plan of Treatment Upcoming Encounters Date Type Department Care Team (Late st Contact Info) Description 05/31/2025 1:40 PM CDT Office Visit [facility] Group Family & Internal Medicine [facility] [address] [place] [address] Melissa Velasco APRN [id number] [address] documented as of this encounter Visit Diagnoses Not on filedocumented in this encounter Additional Health Concerns Assessment Noted Time PHQ-9 Depression Total Score: 2 10/19/19 23 2:37 PM STRATEGIC ACCOUNTS MANAGER documented as of this encounter Care Teams Pot Maker Relationship Specialty Start Date End Date Melissa Velasco APRN [id number] [address] PCP - General NURSE PRACTITIONER 09/14/22 documented as of this encounter
--- OUTSIDE RECORDS SUMMARY | 2025-04-28 09:29 | XMS_ITS | Clinical Summary ---
Author Organization [facility] Address [address] [place] [address] Care Team Providers Care Measurement Superintendent Name Role Phone Unavailable Primary Care Provider Unavailabl e Source Comments [facility],non-owned Affiliates and Associated Physician Practices is amultiple site organization consisting of ambulatory clinics and hospital sitesin [place], [place], [place] and [place]. This disclosure is being madepursuant to the Care Everywhere program and may not contain all information available regarding this patient. Last updated 18.[facility] Allergies No known active allergies Medications * [...] Virus Nino valent Vaccine 06/03/2012 INFLUENZA A [id number] VACCINE 07/07/2009 INFLUENZA VACCINE 07/13/2008, 5,2003,2000 MENINGOCOCAL [...] on file Legal Sex Male 5:41 AM QUANTITATIVE EQUITY HEAD Gender Identity Not on file Sexual Orientation Not on file Last Filed Vital Signs Vital Sign Reading Time Taken Comments Blood Pressure 116/70 10/09/2013 9:28 AM QUANTITATIVE EQUITY HEAD Pulse 64 10/09/2013 9:28 AM QUANTITATIVE EQUITY HEAD Temperature 36.6 C (97.9 F) 09/08/2014 10:39 AM QUANTITATIVE EQUITY HEAD Respiratory Rate 20 07/08/2009 3:28 PM QUANTITATIVE EQUITY HEAD Oxygen Saturation 98% 10/04/2011 1:41 PM QUANTITATIVE EQUITY HEAD Inhaled Oxygen Concentration - - Weight 61.9 kg (136 lb 6.4 oz) 09/08/2014 10:39 AM QUANTITATIVE EQUITY HEAD Height 177.8 cm (5' 10) 09/08/2014 10:39 AM QUANTITATIVE EQUITY HEAD Body Mass Index 19.57 09/08/2014 10:39 AM QUANTITATIVE EQUITY HEAD Plan of Treatment Health Maintenance Due Date Last Done Comments HIV SCREENING 2011 HPV VACCINE (2 - Male 3-dose series) 07/01/2012 06/03/2012 HEPATITIS C SCREENING 07/23/2014 DTAP/TDAP/TD VACCINES (7 - Td or Tdap) 05/02/2017 05/02/2007, 04/09/2002, 07/28/1997, Additional history exists DEPRESSION SCREENING 08/19/2024 COVID-19 VACCINE ( season) 2025 INFLUENZA VACCINE (#1) 2025 2, 07/07/2009, 07/13/2008, [...]
--- OUTSIDE RECORDS SUMMARY | 2025-04-28 09:30 | XMS_ITS | Encounter Summary ---
Author Organization [facility] Address [facility] [place] [address] Care Team Providers Care Editor City Name Role Phone Melissa Velasco APRN Primary Care Provider +1- [phone] Encounter Details Date Type Department Care Team (Late st Contact Info) Description 12/06/2023 Spotzot Message Enc [facility] Group Family & Internal Medicine [facility] [address] [place] [address] Oni, [facility] Provider Need follow up appt [...] Sex Assigned at Male 09/02/2024 5:11 PM LITHARGE MILL OPERATOR Legal Sex Male 8:00 PM CDT Gender Identity Not on file Sexual Orientation Not on file documented as of this encounter Plan of Treatment Upcoming Encounters Date Type Department Care Team (Late st Contact Info) Description 05/31/2025 1:40 PM CDT Office Visit [facility] Family & Internal Medicine [facility] [address] [place] [phone] Melissa Velasco APRN [address] [address] documented as of this encounter Visit Diagnoses Not on filedocumented in this encounter Additional Health Concerns Assessment Noted Time PHQ-9 Depression Total Score: 2 10/19/19 23 2:37 PM LITHARGE MILL OPERATOR documented as of this encounter Care Teams Editor City Relationship Specialty Start Date End Date Melissa Velasco APRN [id number] [address] PCP - General NURSE PRACTITIONER 09/14/22 documented as of this encounter
--- OUTSIDE RECORDS SUMMARY | 2025-04-28 09:30 | XMS_ITS | Clinical Summary ---
Author Organization [facility] Address [facility] [place] [address] Care Team Providers Care Spinning Machine Operator Name Role Phone Melissa Velasco APRN Primary Care Provider +1- [phone] Allergies No known active allergies Medications levalbuterol [...] as needed for Anxiety. 30 tablet 5 04/25/20 25 Discontinu ed(Reorder ) Active Problems Problem Noted Date Diagnosed Date Gastroesophageal reflux dise ase, unspecified whether esophagitis present 05/15/2023 Anxiety 03/14/2023 Attention deficit hyperactivity disorder (ADHD) 07/08/2009 Asthma ([facility]) 09/16/1998 Immunizations Immunization Administration Dates Next Due [...] Sex Assigned at Male 09/02/2024 5:11 PM CLINICAL RESEARCH TECHNICIAN Legal Sex Male 8:00 PM CDT Gender [...] 12/03/2024 3:23 PM CDT Plan of Treatment Upcoming Encounters Date Type Department Care Team (Late st Contact Info) Description 05/31/2025 1:40 PM CDT Office Visit [facility] Group Family & Internal Medicine [facility] [address] [place] [address] Melissa Velasco, GAME ATTENDANT [address] [facility] [address] [place] [address] Health Maintenance Due Date Last Done Comments Annual Physical 1999 HPV Vaccines (2 - Male 3-dose series) 07/01/2012 06/03/2012 Hepatitis C 2014 COVID-19 Vaccine ( season) 2025 Pneumococcal Vaccine: Pediatrics (0 to 5 Years) [...] age to complete this topic PHQ-2 (Physician [place]) Completed 09/04/2024 Meningococcal B Vaccine Aged Out No l onger eligible based on patient's age to complete this topic RSV Immunizations Under 20 Months Aged Out No longer eligible based on patient's age to complete this topic Insurance [employer] Care Teams Spinning Machine Operator Relationship Specialty Start Date End Date Melissa Velasco APRN [address] [place] [address] PCP - General NURSE PRACTITIONER 09/14/22
--- OUTSIDE RECORDS SUMMARY | 2025-04-28 09:30 | XMS_ITS | Encounter Summary ---
Author Organization [facility] Address [facility] [place] [address] Care Team Providers Care Warehouse General Laborer Name Role Phone Melissa Velasco APRN Primary Care Provider +1- [phone] Encounter Details Date Type Department Care Team (Late st Contact Info) Description 02/04/2024 StudyApps Message [facility] Family & Internal Medicine [facility] [address] [place] [address] Oni, [facility] Provider Shonda [facility] Social History Tobacco Use Types Packs/Day [...] Sex Assigned at Male 09/02/2024 5:11 PM CORPORATE TECHNICAL RECRUITER Legal Sex Male 8:00 PM CDT Gender [...] Not at all 02/04/2024 9:17 AM Valentin lAdrich MA Active Thoughts that you would be [...] still 1 02/04/2024 9:18 AM CDT Valentin Ramhan MA Act erika Becoming easily annoyed or [...] Description 05/31/2025 1:40 PM CDT Office Visit [facility] Family & Internal Medicine [facility] [id number] [place] [address] Melissa Velasco APRN [address] [place] [address] documented as of this encounter Visit Diagnoses Not on filedocumented in this encounter Additional Health Concerns Assessment Noted Time PHQ-9 Depression Total Score: 4 02/04/20 24 9:17 AM CDT documented as of this encounter Care Teams Warehouse General Laborer Relationship Specialty Start Date End Date Melissa Velasco APRN [address] [place] [address] PCP - General NURSE PRACTITIONER 09/14/22 documented as of this encounter
== END 2025-04-28 10:08 | disposition home or self-care (01) ==
PROVIDERS: Emergency Provider Registered Nurse
DX: M25.562 Pain in left knee (principal); R03.0 Elevated blood-pressure reading, without diagnosis of hypertension
CPT/HCPCS: 73564; 99213; G0463

== ENCOUNTER 2025-07-12 10:55 | Emergency (ER) | payer BC, SELFPAY ==
[2025-07-12 11:07] VITALS: BP 148/77; PULSE 76; RESP 18; TEMP 36.5; O2SAT 100
[2025-07-12 11:54] LABS: EDSTREPNEGPOS1 Negative (Negative)
--- NOTE | 2025-07-12 11:56 | ED_ITS ---
HPI - URI/Sore Throat General Chief Complaint: Upper Respiratory Infection Stated Complaint: URI Time Seen by Provider: 07/12/25 11:50 Source: patient and RN notes reviewed Mode of arrival: ambulatory Limitations: no limitations History of Present Illness HPI Narrative: 29-year-old male patient presents today complaining of a 2 week history of nasal congestion, sore throat, cough, wheezing, and some chest tightness. States he felt feverish 3-4 days ago but this has since resolved. He has been taking some cough and cold medicine as well as some hot tea without relief. History of asthma for which he does have an inhaler, but has not been using it. Just got back from vacation for which his also became ill but has since got antibiotics and is feeling better. Related Data Home Medications ?Medication ?Instructions ?Recorded ?Confirmed ?Last Taken ?Type omeprazole 20 mg capsule,delayed 20 mg PO DAILY 04/28/25 Unknown His tory release alprazolam 1 mg tablet mg 03/14/25 Unknown History escitalopram oxalate 5 mg tablet mg 03/14/25 Unknown History Allergies Allergy/AdvReac Type Severity Reaction Status Date / Time No Known Allergies Allergy Verified 04/28/25 09:06 [facility] Past Medical History Medical History (Updated 07/12/25 @ 12:00 by Khadra Sandoval, PUMP AND STILL OPERATOR, ACTUARIAL INTERNSHIP) Asthma Comments At time of signature, I have reviewed and agree with nursing past medical, surgical, social and family history unless otherwise noted. Please see nursing chart for further information. There is no relevant family history pertinent to the presenting complaint Exam Narrative: GENERAL: Mildly ill appearing, well-nourished, and in no acute distress. HEAD: Normocephalic, atraumatic. EYES: EOMI. No redness or drainage. Conjunctivae normal. ENT: Mucous membranes pink and moist. Nares congested with rhinorrhea. TMs normal bilaterally. Throat normal. Uvula midline. NECK: Normal AROM. Supple. No lymphadenopathy. CHEST: No respiratory distress. Clear to auscultation. Harsh cough noted HEART: Regular rate and rhythm. No murmur appreciated EXTREMITIES: Normal range of motion. No edema. SKIN: Warm, dry, no rash. Capillary refill normal. Normal skin turgor. NEURO: No focal deficits. Alert and oriented x3. Gait steady. PSYCH: Normal affect. No signs of depression or anxiety. Course Course Level of Care: Express Care Visit Vital Signs Vital signs: Vital Signs Temperature 97.7 F 07/12/25 11:07 Pulse Rate 76 07/12/25 11:07 Respiratory Rate 18 07/12/25 11:07 Blood Pressure 148/77 H 07/12/25 11:07 Pulse Oximetry 100 07/12/25 11:07 Oxygen Delivery Room Air 07/12/25 11:07 Temperature 97.7 F 07/12/25 11:07 Pulse Rate 76 07/12/25 11:07 Respiratory Rate 18 07/12/25 11:07 Blood Pressure 148/77 H 07/12/25 11:07 Pulse Oximetry 100 07/12/25 11:07 Oxygen Delivery Room Air 07/12/25 11:07 Reviewed MDM - URI/Sore Throat MDM Narrative Medical decision making narrative: 29-year-old male patient presents today complaining of a 2 week history of nasal congestion, sore throat, cough, and some chest tightness. States he felt feverish 3-4 days ago but this has since resolved. He has been taking some cough and cold medicine as well as some hot tea without relief. History of asthma for which he does have an inhaler, but has not been using it. Just got back from vacation for which his also became ill but has since got antibiotics and is feeling better. Upon exam, patient is mildly ill appearing with nasal congestion, rhinorrhea, and a harsh cough. Patient will be started on some antibiotics, prednisone, and Tessalon Perles for sinusitis, bronchitis/asthma exacerbation. Patient agrees with plan. Vital signs stable, with mildly elevated blood pressure. Anticipatory guidance given. Rapid strep negative. Differential Diagnosis Differential diagnosis: Likely upper respiratory infection Lab Data Attestation: I reviewed the patient's lab results. Labs: Lab Results 07/12/25 Range/Units 11:52 POC Grp A Strep Screen Negative (Negative) Critical Care Time Critical Care Time Critical Care Time: No Discharge Plan Discharge Clinical Impression: Bronchitis Sinusitis Qualifiers: Sinusitis location: unspecified location Chronicity: acute Recurrence: non- recurrent Qualified Code(s): J01.90 - Acute sinusitis, unspecified Patient Disposition: Home Condition: Stable Instructions: Antibiotic Form, Sinusitis (ED), Acute Bronchitis (ED) Additional Instructions: Please take the Augmentin and prednisone as directed. Take the Tessalon Perles for cough if needed. Follow-up with your PCP in 3 days if symptoms are not improving. Go to the ER immediately if symptoms worsen. Use your albuterol inhaler if needed for coughing episodes, chest tightness, wheezing. Patient Language: South Sudanese Prescriptions: New benzonatate 200 mg capsule 200 mg PO TID PRN (Reason: cough) Qty: 20 0RF prednisone 50 mg tablet 50 mg PO DAILY 5 Days Qty: 5 0RF amoxicillin-pot clavulanate 875-125 mg tablet 1 tablet PO Q12H 7 Days Qty: 14 0RF No Action alprazolam 1 mg tablet escitalopram oxalate 5 mg tablet omeprazole 20 mg capsule,delayed release(DR/EC) 20 mg PO DAILY Follow-up/Referrals: Krista,Melissa Gil APRN [Primary Care Provider, Unknown] Time of Disposition: 12:00
--- OUTSIDE RECORDS SUMMARY | 2025-07-12 12:58 | XMS_ITS | Clinical Summary ---
Author Organization [facility] Address [address] [place] [address] Care Team Providers Care Hand Zipper Trimmer Name Role Phone Unavailable Primary Care Provider Unavailabl e Source Comments [facility],non-owned Affiliates and Associated Physician Practices is amultiple site organization consisting of ambulatory clinics and hospital sitesin [place], [place], [place] and [place]. This disclosure is being madepursuant to the Care Everywhere program and may not contain all information available regarding this patient. Last updated 18.[facility] Allergies No known active allergies Medications * [...] Virus Nino valent Vaccine 06/03/2012 INFLUENZA A [id number] VACCINE 07/07/2009 INFLUENZA VACCINE 07/13/2008, 5,2003,2000 MENINGOCOCAL [...] on file Legal Sex Male 5:41 AM SHOPPER Gender Identity Not on file Sexual Orientation Not on file Last Filed Vital Signs Vital Sign Reading Time Taken Comments Blood Pressure 116/70 10/09/2013 9:28 AM SHOPPER Pulse 64 10/09/2013 9:28 AM SHOPPER Temperature 36.6 C (97.9 F) 09/08/2014 10:39 AM SHOPPER Respiratory Rate 20 07/08/2009 3:28 PM SHOPPER Oxygen Saturation 98% 10/04/2011 1:41 PM SHOPPER Inhaled Oxygen Concentration - - Weight 61.9 kg (136 lb 6.4 oz) 09/08/2014 10:39 AM SHOPPER Height 177.8 cm (5' 10) 09/08/2014 10:39 AM SHOPPER Body Mass Index 19.57 09/08/2014 10:39 AM SHOPPER Plan of Treatment Health Maintenance Due Date [...]
--- OUTSIDE RECORDS SUMMARY | 2025-07-12 13:04 | XMS_ITS | Encounter Summary ---
Author Organization [facility] Address [facility] [place] [address] Care Team Providers Care Quality Assurance Test Program Manager Name Role Phone Melissa Velasco APRN Primary Care Provider +1- [phone] Encounter Details Date Type Department Care Team (Late st Contact Info) Description 12/06/2023 Rumgr Message Enc [facility] Medical Group Family & Internal Medicine [facility] [address] [place] [address] Oni, [facility] Provider Need follow up appt [...] Sex Assigned at Male 09/02/2024 5:11 PM ORCHARD SPRAYER Legal Sex Male 8:00 PM CDT Gender Identity Not on file Sexual Orientation Not on file documented as of this encounter Plan of Treatment Not on file documented as of this encounter Visit Diagnoses Not on filedocumented in this encounter Additional Health Concerns Assessment Noted Time PHQ-9 Depression Total Score: 2 10/19/19 23 2:37 PM ORCHARD SPRAYER documented as of this encounter Care Teams Quality Assurance Test Program Manager Relationship Specialty Start Date End Date Melissa Velasco APRN [address] [place] [address] PCP - General NURSE PRACTITIONER 09/14/22 documented as of this encounter
--- OUTSIDE RECORDS SUMMARY | 2025-07-12 13:04 | XMS_ITS | Encounter Summary ---
Author Organization [facility] Address [facility] [place] [address] Care Team Providers Care Manager Shell Name Role Phone Melissa Velasco APRN Primary Care Provider +1- [phone] Encounter Details Date Type Department Care Team (Late st Contact Info) Description 02/04/2024 [email or web address] Message [facility] Family & Internal Medicine [facility] [address] [place] [address] Oni, [facility] Provider [facility] peggy Social History Tobacco Use Types Packs/Day [...] Sex Assigned at Male 09/02/2024 5:11 PM BEEF GRINDER Legal Sex Male 8:00 PM CDT Gender [...] documented as of this encounter Care Teams Manager Shell Relationship Specialty Start Date End Date Melissa Velasco APRN [address] [facility] [address] [place] [address] PCP - General NURSE PRACTITIONER 09/14/22 documented as of this encounter
--- OUTSIDE RECORDS SUMMARY | 2025-07-12 13:04 | XMS_ITS | Encounter Summary ---
Author Organization [facility] Address [facility] [place] [address] Care Team Providers Care Advertising Operations Coordinator Name Role Phone Melissa Velasco APRN Primary Care Provider +1- [phone] Encounter Details Date Type Department Care Team (Late st Contact Info) Description 12/19/2022 [employer] Message Enc [facility] Family & Internal Medicine [facility] [address] [place] [address] Oni, [facility] Provider clonazepam Social History Tobacco Use Types [...] Sex Assigned at Male 09/02/2024 5:11 PM BUILDING MAINTENANCE CUSTODIAN Legal Sex Male 8:00 PM CDT Gender Identity Not on file Sexual Orientation Not on file documented as of this encounter Plan of Treatment Not on file documented as of this encounter Visit Diagnoses Not on filedocumented in this encounter Additional Health Concerns Assessment Noted Time PHQ-9 Depression Total Score: 2 10/19/19 23 2:37 PM BUILDING MAINTENANCE CUSTODIAN documented as of this encounter Care Teams Advertising Operations Coordinator Relationship Specialty Start Date End Date Melissa Velasco APRN [address] [place] [address] PCP - General NURSE PRACTITIONER 09/14/22 documented as of this encounter
--- OUTSIDE RECORDS SUMMARY | 2025-07-12 13:04 | XMS_ITS | Clinical Summary ---
Author Organization [facility] Address [address] [place] [address] Care Team Providers Care Consultant In Ergonomics And Safety Name Role Phone Melissa Velasco APRN Primary Care Provider +1- [phone] Allergies No known active allergies Medications levalbuterol (XOPENEX HFA) 45 MCG/ACT inhalerIndicatio ns:Symptom of wheezing Inhale 2 puffs into the lungs 3 (three) times daily as needed for Wheezing. 45 g 1 4 Active hydrocortisone 2.5 % creamIndications :Rash Apply topically 2 (two) times daily. 28 g 2 5 Active omeprazole (PRILOSEC) 40 MG capsuleIndicatio ns:Gastroesophag eal reflux disease, unspecified whether esophagitis present Take 1 capsule (40 mg total) by mouth daily. 90 capsule 1 5 Active ALPRAZolam (XANAX) 1 MG tabletIndication s:Anxiety Take 1 tablet (1 mg total) by mouth daily as needed for Anxiety. 30 tablet 5 Active Active Problems Problem Noted Date Diagnosed Date Gastroesophageal reflux dise ase, unspecified whether esophagitis present 05/15/2023 Anxiety 03/14/2023 Attention deficit hyperactivity disorder (ADHD) 07/08/2009 Asthma 09/16/1998 Encounters Date Type Department Care Team Description 06/02/2025 Results Follow-Up [facility] Family & Internal Medicine [address] [address] Melissa Velasco APRN MG/PCCL UDS W CONF 05/31/2025 1:40 PM CDT Office Visit [facility] Family & Internal Medicine [address] [address] Melissa Velasco APRN Follow Up (Medication management ) 05/31/2025 Travel 05/12/2025 Scan [facility] SRVCS Scanned, [facility] from Last 3 Months Immunizations Immunization Administration Dates Next Due Dtap [...] Sex Assigned at Male 09/02/2024 5:11 PM MARKETING COPYWRITER Legal Sex Male 8:00 PM CDT Gender Identity Not on file Sexual Orientation Not on file Last Filed Vital Signs Vital Sign Reading Time Taken Comments Blood Pressure 133/88 05/31/2025 1:43 PM CDT Pulse 82 05/31/2025 1:43 PM CDT Temperature 36.8 C (98.2 F) 05/31/2025 1:43 PM CDT Respiratory Rate 18 05/31/2025 1:43 PM CDT Oxygen Saturation 96% 05/31/2025 1:43 PM CDT Inhaled Oxygen Concentration - - Weight 69.9 kg (154 lb) 05/31/2025 1:43 PM CDT Height 182.9 cm (6') 05/31/2025 1:43 PM CDT Body Mass Index 20.89 05/31/2025 1:43 PM CDT Plan of Treatment Health Maintenance Due Date Last Done Comments Annual Physical 1999 HPV Vaccines (2 - Male 3-dose series) 07/01/2012 06/03/2012 Hepatitis C 2014 COVID-19 Vaccine ( season) 2025 Influenza Adult (#1) 2025 06/03/2012, 07/07/2009, 07/13/2008, Additional history exists Pneumococcal Vaccine: Pediatrics (0 to 5 Years) and At-Risk Patients (6 to 49 Years) (1 of 2 - PCV) 09/17/2025 Postponed from 2015 (Patient will follow up with PCP) DTaP, Tdap and Td Vaccines (5 - Td or Tdap) 05/03/2034 05/03/2024, 05/02/2007, 04/09/2002, Additional history exists Hepatitis B Vaccines Completed 03/18/1997, 1996, 1996 Hepatitis A Vaccines Completed 07/13/2008, 05/02/20 07 Meningococcal Vaccine Aged Out 07/13/2008 No luca marisol eligible based on patient's age to complete this topic PHQ-2 (Physician [place]) Completed 09/04/2024 Meningococcal B Vaccine Aged Out No l onger eligible based on patient's age to complete this topic RSV Immunizations Under 20 Months Aged Out No longer eligible based on patient's age to complete this topic Procedures Procedure Name Priority Date/Time Associated Diagnosis Comments MG/PCCL UDS W CONF Routine 05/31/2025 1: 50 PM CDT Therapeutic drug monitoring Medication management from Last 3 Months Results * (ABNORMAL) MG/PCCL UDS W CONF (05/31/2025 1:50 PM CDT) RESULT SUMMARY [facility] Comment: Prescribed Prescribed Not Prescribed Consistent Inconsistent Inconsistent Xanax(TM) Marijuana Metabolite PRESCRIBED DRUG 1 (U) Xanax(TM) [facility] [place] FENTANYL SCREEN (U) NEGATIVE <0.5 ng/mL [facility] [place] 6 ACETYLMORPHINE (U) NEGATIVE <10 ng/mL [facility] [place] DESMETHYLTRAMADOL (U) NEGATIVE <100 ng/mL [facility] [place] TRAMADOL (U) NEGATIVE <100 ng/mL [facility] TRAMADOL COMMENTS [facility] Comment:See LDT Notes AMPHETAMINES PM NEGATIVE <500 ng/mL [facility] [place] BARBITURATES PM (U) NEGATIVE <300 ng/mL [facility] [place] BENZODIAZEPINES PM (U) POSITIVE(A) <100 ng/mL [facility] ALPHAHYDROXYALPRAZOLAM PM (U) 122(H) <25 ng/mL [facility] [place] ALPHAHYDROXYALPRAZOLAM PM MEDMATCH (U) CONSISTENT [facility] MIDAZOLAM PM (U) NEGATIVE <50 ng/mL [facility] ALPHAHYDROXYTRIAZOLAM PM (U) NEGATIVE <50 ng/mL [facility] AMINOCLONAZEPAM PM (U) NEGATIVE <25 ng/mL [facility] OH ET FLURAZEPAM PM (U) NEGATIVE <50 ng/mL [facility] LORAZEP[facility] PM (U) NEGATIVE <50 ng/mL [facility] NORDIAZEP[facility] PM (U) NEGATIVE <50 ng/mL [facility] OXAZEP[facility] PM (U) NEGATIVE <50 ng/mL [facility] TEMAZEPAM PM NEGATIVE <50 ng/mL [facility] BENZODIAZEPINES COMMENTS [facility] Comment:See Benzodiazepines Notes, LDT Notes COCAINE METABOLITE PM (U) NEGATIVE <150 ng/mL [facility] MARIJUANA METABOLITE PM (U) POSITIVE(A) <20 ng/mL [facility] MARIJUANA METABOLITE PM CONF (U) 199(H) <5 ng/mL [facility] MARIJUANA METAB PM MM CONF (U) INCONSISTENT (A) [facility] MARIJUANA COMMENTS [facility] Comment:See Marijuana Notes, LDT Notes METHADONE PM (U) NEGATIVE <100 ng/mL [facility] OPIATES PM (U) NEGATIVE <100 ng/mL [facility] OXYCODONE PM (U) NEGATIVE <100 ng/mL [facility] CREATININE RANDOM (U) 63.5 > or = 20.0 mg/dL [facility] pH PM (U) 7.1 4.5 - 9.0 [facility] OXIDANT NEGATIVE <200 mcg/mL [facility] NOTE [facility] Comment: This drug testing is for medical treatment only. Analysis was performed as non-forensic testing and these results should be used only by healthcare providers to render diagnosis or treatment, or to monitor progress of medical conditions. Benzodiazepines Notes: aOH Alprazolam detected is consistent with the use of the drug Alprazolam. Marijuana Notes: Marijuana Metabolite detected is consistent with exposure to Marijuana (THC) and/or hemp derived products. Some jurisdictions do not include hemp within the definition of Marijuana. LDT Notes: Confirmation tests were developed and their analytical performance characteristics have been determined by [facility]. It has not been cleared or approved by the FDA. This assay has been validated pursuant to the CLIA regulations and is used for clinical purposes. medMATCH(R) enables providers to identify if drug use is consistent or inconsistent with a corresponding prescribed medication(s) list. Healthcare Providers needing Interpretation assistance, please contact us at [phone] ( ) M-F, 8am to 10pm EST URINE SPECIMEN / Unknown 05/31/2025 1:50 PM CDT 06/01/2025 12:02 AM CDT Narrative Resulting Agency Comment Performing Organization Information: Site ID: [id number] [facility] Address: [address] [place] [id number] Director: Ortiz Wotoen Site ID: [id number] Name: [facility] Address: [address] [place] [address] Director: Eileen Alejo MD Melissa Velasco APRN URINE ORDERABLES Final Res ult [facility] - [facility] [address] [place], [place] [address] [[email or web address]] [facility] [address] [place] [address] from Last 3 Months Insurance [facility] [employer] [place] Care Teams Consultant In Ergonomics And Safety Relationship Specialty Start Date End Date Melissa Velasco APRN [address] [place] [address] PCP - General NURSE PRACTITIONER 09/14/22
--- OUTSIDE RECORDS SUMMARY | 2025-07-12 13:04 | XMS_ITS | Encounter Summary ---
Author Organization [facility] Address [facility] [place] [address] Care Team Providers Care Document Photographer Name Role Phone Melissa Velasco APRN Primary Care Provider +1- [phone] Encounter Details Date Type Department Care Team (Late st Contact Info) Description 04/30/2023 Epom Message [facility] Family & Internal Medicine [facility] [id number] [place] [address] Oni, [facility] Provider pain Social History Tobacco Use Types [...] Sex Assigned at Male 09/02/2024 5:11 PM BUSINESS ANALYSIS ANALYST Legal Sex Male 8:00 PM CDT Gender Identity Not on file Sexual Orientation Not on file documented as of this encounter Plan of Treatment Not on file documented as of this encounter Visit Diagnoses Not on filedocumented in this encounter Additional Health Concerns Assessment Noted Time PHQ-9 Depression Total Score: 2 10/19/19 2:37 PM BUSINESS ANALYSIS ANALYST documented as of this encounter Care Teams Document Photographer Relationship Specialty Start Date End Date Melissa Velasco APRN [id number] [place] [address] PCP - General NURSE PRACTITIONER 09/14/22 documented as of this encounter
== END 2025-07-12 12:07 | disposition home or self-care (01) ==
PROVIDERS: Emergency Provider Nurse Practitioner; PCP Registered Nurse
DX: J40 Bronchitis, not specified as acute or chronic (principal); J01.90 Acute sinusitis, unspecified
CPT/HCPCS: 87081; 87880; 99213; G0463